=== PATIENT | male | born 1960 | race Caucasian/White ===

== ENCOUNTER 2016-11-19 12:31 | Emergency (ER) | payer BC ==
[2016-11-19] MEDS ORDERED: Sodium Chloride 0.9% 10 ML Syringe FLUSH PRN (12:48)
[2016-11-19] MEDS ORDERED: Aspirin 81 MG Tab.Chew PO ONE (12:48)
[2016-11-19] MEDS ORDERED: Sodium Chloride 0.9% 2.5 ML Syringe FLUSH PRN (12:48)
--- NOTE | 2016-11-19 12:53 | EDM.PDOC ---
ED HISTORY OF PRESENT ILLNESS - General Chief Complaint: Cardiovascular Problem Stated Complaint: UNK Time Seen by Provider: 11/19/16 12:39 - History of Present Illness INITIAL COMMENTS - FREE TEXT/NARRATIVE: HISTORY AND PHYSICAL: History of present illness: The patient is a 56-year-old male who presents after obtaining abnormal lab tests from the office of , where he had blood work done yesterday. According to the history he woke in the middle of night between and Monday with tingling in bilateral arms and severe discomfort in both of his arms diffusely. At that time he did not have chest pain or shortness of breath or abdominal pain and had no diaphoresis. He said he was not weak in his arms but they were both equally painful. He had a normal day earlier and this discomfort an episode lasted for about 4 hours constantly and then gradually "Petered off ". The patient states that his girlfriend works at Dr. Quevedo's office so they went in to get some testing done including EKG and blood work. The patient says he went home last night slept and woke today and was having a normal day when he was called saying that he had abnormal test results and he should come to the ER. I was also called by Dr. Quevedo recording these lab tests which included a troponin of 6.91. The patient stopped to get lunch prior to coming to the ER because he did not feel that there was urgency as he is having no symptoms of chest pain shortness of breath or upper extremity pain. The patient is a smoker who smokes one pack per week he denies alcohol and drug use. He has no family history or personal history of cardiac or pulmonary disease. The patient says he was seen here in our ER about 2 weeks ago and was "dehydrated and not feeling good". The patient has never done any cardiac testing and has no leg pain or swelling currently. The patient denies any symptomatology currently and denies any chest pain or shortness of breath with activities. Review of systems: As per history of present illness and below otherwise all systems reviewed and negative. Past medical history: As per history of present illness and as reviewed below otherwise noncontributory. Surgical history: As per history of present illness and as reviewed below otherwise noncontributory. Social history: No reported history of drug or alcohol abuse. Family history: As per history of present illness and as reviewed below otherwise noncontributory. Physical exam: General: Well-developed overweight male who is nontoxic and moving easily in ED. Vital signs are stable and have been reviewed by me. HEENT: Atraumatic, normocephalic, pupils reactive, negative for conjunctival pallor or scleral icterus, mucous membranes moist, throat clear, neck supple, nontender, trachea midline. Lungs: Clear to auscultation, breath sounds equal bilaterally, chest nontender.Normal air exchange no accessory muscle use wheezing or stridor Heart: S1S2, regular, negative for clicks, rubs, or JVD. Abdomen: Soft, nondistended, nontender. Negative for masses or hepatosplenomegaly. Negative for costovertebral tenderness. Pelvis: Stable nontender. Genitourinary: Deferred. Rectal: Deferred. Extremities: Atraumatic, negative for cords or calf pain. Neurovascular unremarkable.No pedal edema or leg asymmetry Neuro: Awake, alert, oriented. Cranial nerves II through XII unremarkable. Cerebellum unremarkable. Motor and sensory unremarkable throughout. Exam nonfocal. Diagnostics: EKG chest x-ray CBC CMP INR troponin Therapeutics: Aspirin Lovenox Patient's results of his test performed on Monday were sent to me which included a troponin-I of 6.91 CK-MB of 125.1 he also had CBC CMP PSA TSH triglycerides and cholesterol magnesium and EKG. According to the provider there he perform these tests last evening but did not get the results of today and called me as well as the patient to come for evaluation. 1335: Testing results were discussed with the patient, girlfriend and Dr. Valle the surgical nurse at [facility] in [place]. He will be transferred there as a direct admission to telemetry by Dr. Valle. Dr. Valle would like Lovenox to be given but no Plavix and as he is pain-free before baby aspirin only. He advises to treat the pain if it recurs in route and he feels ambulance transfer is appropriate. Critical care time excluding procedures:31min Impression: Non-STEMI FL Definitive disposition and diagnosis as appropriate pending reevaluation and review of above. - Related Data Allergies/ADRs: Allergies Allergy/AdvReac Type Severity Reaction Status Date / Time No Known Allergies Allergy Verified 11/19/16 12:37 Home Meds: Home Meds . [No Known Home Meds] 10/04/16 [History] Past Medical History - Past Health History Medical/Surgical History: Denies Medical/Surgical History HEENT History: Reports: None Cardiovascular History: Reports: High cholesterol, Hypertension Respiratory History: Reports: None Gastrointestinal History: Reports: None Genitourinary History: Reports: None Musculoskeletal History: Reports: None Neurological History: Reports: None Psychiatric History: Reports: None Endocrine/Metabolic History: Reports: None Hematologic History: Reports: None Immunologic History: Reports: None Oncologic (Cancer) History: Reports: None Dermatologic History: Reports: None - Infectious Disease History Infectious Disease History: Reports: None - Past Surgical History Head Surgeries/Procedures: Reports: None Social & Family History - Family History Family Medical History: Noncontributory - Tobacco Use Smoking Status *Q: Current Some Day Smoker Years of Tobacco use: 10 Packs/Tins Daily: 0.2 Second Hand Smoke Exposure: No - Caffeine Use Caffeine Use: Reports: Coffee - Recreational Drug Use Recreational Drug Use: No ED ROS GENERAL - Review of Systems Review Of Systems: ROS reveals no pertinent complaints other than HPI. ED EXAM, GENERAL - Physical Exam Exam: See Below (See dictation) Course - Vital Signs Last Recorded V/S: Last Vital Signs Temp 36.8 C 11/19/16 12:37 Pulse 78 11/19/16 13:00 Resp 16 11/19/16 13:00 BP 125/76 11/19/16 13:00 Pulse Ox 98 11/19/16 13:20 - Orders/Labs/Meds Orders: Active Orders 24 hr Category Date Time Status Cardiac Monitoring [RC] . DIRECTED Care 11/19/16 12:48 Active EKG Documentation Completion [RC] STAT Care 11/19/16 12:48 Active Oxygen Therapy, ED [RC] ASDIRECTED Care 11/19/16 12:48 Active Pulse Oximetry [RC] ASDIRECTED Care 11/19/16 12:48 Active Chest 1V Frontal [CR] Stat Exams 11/19/16 12:48 Taken Sodium Chloride 0.9% [Saline Flush] Med 11/19/16 12:48 Active 10 ml FLUSH ASDIRECTED PRN Sodium Chloride 0.9% [Saline Flush] Med 11/19/16 12:48 Active 2.5 ml FLUSH ASDIRECTED PRN Saline Lock Insert [OM.PC] Stat Oth 11/19/16 12:47 Ordered Medication Orders Sodium Chloride (Saline Flush) 10 ml FLUSH ASDIRECTED PRN PRN Reason: Keep Vein Open Last Admin: 11/19/16 12:54 Dose: 10 ml Sodium Chloride (Saline Flush) 2.5 ml FLUSH ASDIRECTED PRN PRN Reason: Keep Vein Open Last Admin: 11/19/16 12:54 Dose: 2.5 ml Labs: Laboratory Tests 11/19/16 11/19/16 11/19/16 Range/Units 12:26 12:40 12:40 WBC 11.61 H (4.0-11.0) K/uL RBC 4.98 (4.50-5.90) M/uL Hgb 15.8 (13.0-17.0) g/dL Hct 46.4 (38.0-50.0) % MCV 93.2 (80.0-98.0) fL MCH 31.7 (27.0-32.0) pg MCHC 34.1 (31.0-37.0) g/dL RDW Std Deviation 44.4 (28.0-62.0) fl RDW Coeff of Tino 13 (11.0-15.0) % Plt Count 159 (150-400) K/uL MPV 11.10 (7.40-12.00) fL Neut % (Auto) 72.3 (48.0-80.0) % Lymph % (Auto) 17.8 (16.0-40.0) % Josephine % (Auto) 8.8 (0.0-15.0) % Eos % (Auto) 0.9 (0.0-7.0) % Baso % (Auto) 0.2 (0.0-1.5) % Neut # (Auto) 8.4 H (1.4-5.7) K/uL Lymph # (Auto) 2.1 (0.6-2.4) K/uL Josephine # (Auto) 1.0 H (0.0-0.8) K/uL Eos # (Auto) 0.1 (0.0-0.7) K/uL Baso # (Auto) 0.0 (0.0-0.1) K/uL Nucleated RBC % 0.0 /100WBC Nucleated RBCs # 0 K/uL INR 0.99 (0.86-1.11) Sodium 140 (136-146) mmol/L Potassium 4.2 (3.5-5.1) mmol/L Chloride 109 (98-110) mmol/L Carbon Dioxide 19 L (21-31) mmol/L BUN 18 (6.0-23.0) mg/dL Creatinine 1.1 (0.6-1.5) mg/dL Est Cr Clr Drug Dosing 73.41 mL/min Estimated GFR (MDRD) > 60.0 ml/min Glucose 132 H (60-110) mg/dL Calcium 8.8 (8.8-10.8) mg/dL Total Bilirubin 0.7 (0.1-1.5) mg/dL AST 86 H (5-40) IU/L ALT 43 (8-54) IU/L Alkaline Phosphatase 81 (40-150) Troponin I (0.0-0.29) NG/ML Total Protein 7.3 (6.0-8.0) g/dL Albumin 4.1 (3.5-5.0) g/dL Globulin 3.2 (2.0-3.5) g/dL Albumin/Globulin Ratio 1.3 (1.3-2.8) 11/19/16 Range/Units 12:40 WBC (4.0-11.0) K/uL RBC (4.50-5.90) M/uL Hgb (13.0-17.0) g/dL Hct (38.0-50.0) % MCV (80.0-98.0) fL MCH (27.0-32.0) pg MCHC (31.0-37.0) g/dL RDW Std Deviation (28.0-62.0) fl RDW Coeff of Tino (11.0-15.0) % Plt Count (150-400) K/uL MPV (7.40-12.00) fL Neut % (Auto) (48.0-80.0) % Lymph % (Auto) (16.0-40.0) % Josephine % (Auto) (0.0-15.0) % Eos % (Auto) (0.0-7.0) % Baso % (Auto) (0.0-1.5) % Neut # (Auto) (1.4-5.7) K/uL Lymph # (Auto) (0.6-2.4) K/uL Josephine # (Auto) (0.0-0.8) K/uL Eos # (Auto) (0.0-0.7) K/uL Baso # (Auto) (0.0-0.1) K/uL Nucleated RBC % /100WBC Nucleated RBCs # K/uL INR (0.86-1.11) Sodium (136-146) mmol/L Potassium (3.5-5.1) mmol/L Chloride (98-110) mmol/L Carbon Dioxide (21-31) mmol/L BUN (6.0-23.0) mg/dL Creatinine (0.6-1.5) mg/dL Est Cr Clr Drug Dosing mL/min Estimated GFR (MDRD) ml/min Glucose (60-110) mg/dL Calcium (8.8-10.8) mg/dL Total Bilirubin (0.1-1.5) mg/dL AST (5-40) IU/L ALT (8-54) IU/L Alkaline Phosphatase (40-150) Troponin I 10.82 H* (0.0-0.29) NG/ML Total Protein (6.0-8.0) g/dL Albumin (3.5-5.0) g/dL Globulin (2.0-3.5) g/dL Albumin/Globulin Ratio (1.3-2.8) Meds: Medications Generic Name Dose Route Start Last Admin Trade Name Freq PRN Reason Stop Dose Admin Sodium Chloride 10 ml 11/19/16 12:48 11/19/16 12:54 Saline Flush FLUSH 10 ml ASDIRECTED PRN Administration Keep Vein Open Sodium Chloride 2.5 ml 11/19/16 12:48 11/19/16 12:54 Saline Flush FLUSH 2.5 ml ASDIRECTED PRN Administration Keep Vein Open Discontinued Medications Generic Name Dose Route Start Last Admin Trade Name Freq PRN Reason Stop Dose Admin Aspirin 324 mg 11/19/16 12:48 11/19/16 12:53 Aspirin PO 11/19/16 12:49 324 mg ONETIME ONE Administration Enoxaparin Sodium 100 mg 11/19/16 13:38 Lovenox SUBCUT 11/19/16 13:39 ONETIME ONE Departure - Departure Time of Disposition: 13:41 Disposition: DC/Tfer to Acute Hospital 02 Reason for Transfer *Q: Primary PCI Indicated Condition: good Clinical Impression: Non-STEMI (non-ST elevated myocardial infarction) - My Orders Last 24 Hours: My Active Orders 11/19/16 12:47 Saline Lock Insert [OM.PC] Stat 11/19/16 12:48 Cardiac Monitoring [RC] . DIRECTED EKG Documentation Completion [RC] STAT Oxygen Therapy, ED [RC] ASDIRECTED Pulse Oximetry [RC] ASDIRECTED Chest 1V Frontal [CR] Stat Sodium Chloride 0.9% [Saline Flush] 10 ml FLUSH ASDIRECTED PRN Sodium Chloride 0.9% [Saline Flush] 2.5 ml FLUSH ASDIRECTED PRN - Assessment/Plan Last 24 Hours: My Active Orders 11/19/16 12:47 Saline Lock Insert [OM.PC] Stat 11/19/16 12:48 Cardiac Monitoring [RC] . DIRECTED EKG Documentation Completion [RC] STAT Oxygen Therapy, ED [RC] ASDIRECTED Pulse Oximetry [RC] ASDIRECTED Chest 1V Frontal [CR] Stat Sodium Chloride 0.9% [Saline Flush] 10 ml FLUSH ASDIRECTED PRN Sodium Chloride 0.9% [Saline Flush] 2.5 ml FLUSH ASDIRECTED PRN
[2016-11-19 13:13] LABS: CHLORIDE,CL 109 mmol/L (98-110); SODIUM,NA 140 mmol/L (136-146)
[2016-11-19] MEDS ORDERED: Enoxaparin 100 MG/1 ML Syringe SUBCUT ONE (13:38)
[2016-11-19 13:53] VITALS: BP 141/76
--- NOTE | 2016-11-21 17:18 | CR ---
EXAM DATE: 11/19/16 PATIENT'S AGE: 56 Patient: DORIAN JOSEPH Facility: [place], [place] Site . Site : [id number] Study: XRay Chest [id number]/[id number] 1:10:21 PM Ordering Physician: Tia Contreras Final Report: CHEST 1 VIEW AP INDICATION: Short of breath. IMPRESSION: Normal heart size and vascular pattern. Lungs are clear. No pneumothorax or pleural abnormality. ECG Monitor leads projected over the patient. Stable left-sided upper posterior rib fractures. No change 10/04/2016. Dictated by Leobardo Garber MD @ Nov 19 2016 1:32PM (Electronic Signature) MReport Signed by Proxy and Original Signed Document filed in the Medical Record. MTDD
== END 2016-11-19 14:22 ==
LOC: MW.ED 12:31
DX: I21.4 Non-ST elevation (NSTEMI) myocardial infarction (principal); I10 Essential (primary) hypertension; E78.00 Pure hypercholesterolemia, unspecified; F17.210 Nicotine dependence, cigarettes, uncomplicated
CPT/HCPCS: 36415; 71010; 80053; 84484; 85025; 85610; 93005; 96372; 99285; A9270; J1650; 99291

== ENCOUNTER 2021-11-17 11:30 | Inpatient (IN) | payer BC, MEDICAID ==
[2021-11-17] MEDS ORDERED: Sodium Chloride 0.9% 10 ML Syringe FLUSH PRN ×2 (11:34→14:52)
[2021-11-17] MEDS ORDERED: Sodium Chloride 0.9% 2.5 ML Syringe FLUSH PRN ×2 (11:34→14:52)
[2021-11-17] MEDS ORDERED: Glucagon,Human Recombinant 1 MG Vial IM PRN ×2 (12:08→22:47)
[2021-11-17] MEDS ORDERED: 50% Dextrose in Water 50 ML Syringe IVPUSH PRN ×3 (12:08→22:47)
[2021-11-17] MEDS ORDERED: Insulin Regular, Human 100 Units/ML 10 ML Vial SUBCUT ONE (12:08)
[2021-11-17 12:39] LABS: BLOOD UREA NITROGEN,BUN 22 mg/dL (7.0-18.0); CARBON DIOXIDE,CO2 20.8 mmol/L (21.0-32.0); CHLORIDE,CL 90 mmol/L (98-107)
[2021-11-17] MEDS ORDERED: Insulin Regular in 0.9 % NACL 100 ML IV SCH ×2 (12:43→15:00)
[2021-11-17 12:47] LABS: POTASSIUM,K 4.8 mmol/L (3.5-5.1)
[2021-11-17 12:49] LABS: GLUCOSE RANDOM 587 mg/dL (74-106); SODIUM,NA 124 mmol/L (136-148)
[2021-11-17 12:51] LABS: CORONAVIRUS COVID-19 NAA POSITIVE (NEGATIVE); INFLUENZA A NAA NEGATIVE (NEGATIVE); INFLUENZA B NAA NEGATIVE (NEGATIVE)
[2021-11-17] MEDS ORDERED: Levofloxacin/Dextrose 5%-Water 750 MG in Premix Bag 1 BAG IV ONE (12:54)
[2021-11-17] MEDS ORDERED: Iopamidol 755 MG/ML 500 ML Multipack Bottle IVPUSH STA (13:12)
[2021-11-17] MEDS ORDERED: Sodium Chloride 0.9% 1,000 ML IV ONE (13:37)
[2021-11-17] MEDS ORDERED: Glucagon,Human Recombinant 1 MG Vial IVPUSH PRN (14:49)
[2021-11-17] MEDS ORDERED: Acetaminophen 325 MG Tab PO PRN (14:52)
[2021-11-17] MEDS ORDERED: Ondansetron 4 MG/2 ML SDV IVPUSH PRN (14:52)
[2021-11-17] MEDS ORDERED: Pantoprazole 80 MG in Sodium Chloride 0.9% 10 ML IVPUSH ONE (15:00)
[2021-11-17] MEDS: Sodium Chloride 0.9% 1,000 ML IV SCH ×2 (15:09→16:49)
[2021-11-17] MEDS: Heparin Sodium 5,000 Units/ML Vial SUBCUT SCH ×2 (15:10→23:19)
[2021-11-17] MEDS ORDERED: Albuterol/Ipratropium 3.0-0.5 MG/3 ML Neb Soln NEB PRN (15:25)
[2021-11-17] MEDS ORDERED: Benzonatate 100 MG Cap PO PRN (15:30)
[2021-11-17] MEDS: Fluticasone NASAL Spray 16 GM Bottle NASBOTH SCH (15:49)
[2021-11-17 17:47] LABS: BLOOD UREA NITROGEN,BUN 17 mg/dL (7.0-18.0); CARBON DIOXIDE,CO2 24.7 mmol/L (21.0-32.0); CHLORIDE,CL 97 mmol/L (98-107); GLUCOSE RANDOM 274 mg/dL (74-106); POTASSIUM,K 3.9 mmol/L (3.5-5.1); SODIUM,NA 133 mmol/L (136-148)
[2021-11-17] MEDS: Docusate Sodium 100 MG Cap PO SCH (20:21)
[2021-11-17 21:16] LABS: BLOOD UREA NITROGEN,BUN 16 mg/dL (7.0-18.0); CARBON DIOXIDE,CO2 24.4 mmol/L (21.0-32.0); CHLORIDE,CL 101 mmol/L (98-107); GLUCOSE RANDOM 287 mg/dL (74-106); POTASSIUM,K 3.7 mmol/L (3.5-5.1); SODIUM,NA 134 mmol/L (136-148)
[2021-11-17] MEDS ORDERED: Insulin Aspart 100 Units/ML 3 ML Pen SUBCUT ONE (22:52)
[2021-11-18 06:12] LABS: BLOOD UREA NITROGEN,BUN 14 mg/dL (7.0-18.0); CARBON DIOXIDE,CO2 22.7 mmol/L (21.0-32.0); CHLORIDE,CL 101 mmol/L (98-107); GLUCOSE RANDOM 247 mg/dL (74-106); POTASSIUM,K 4.2 mmol/L (3.5-5.1); SODIUM,NA 133 mmol/L (136-148)
[2021-11-18] MEDS: Pantoprazole 40 MG Tab.CR PO SCH (06:45)
[2021-11-18] MEDS: Heparin Sodium 5,000 Units/ML Vial SUBCUT SCH ×3 (06:45→22:00)
[2021-11-18] MEDS: Insulin Aspart 100 Units/ML 3 ML Pen SUBCUT SCH ×5 (06:50→21:59)
[2021-11-18] MEDS: Fluticasone NASAL Spray 16 GM Bottle NASBOTH SCH (08:09)
[2021-11-18] MEDS: Docusate Sodium 100 MG Cap PO SCH ×2 (08:09→21:57)
[2021-11-18] MEDS ORDERED: Insulin Glargine,Human Rec. Analog 100 Units/ML 3 ML Pen SUBCUT SCH ×2 (09:00→21:00)
[2021-11-18] MEDS: Levofloxacin 750 MG Tab PO SCH (12:03)
[2021-11-18] MEDS ORDERED: Levofloxacin/Dextrose 5%-Water 750 MG in Premix Bag 1 BAG IV SCH (13:00)
[2021-11-19] MEDS: Heparin Sodium 5,000 Units/ML Vial SUBCUT SCH ×2 (06:17→14:08)
[2021-11-19 07:14] LABS: BLOOD UREA NITROGEN,BUN 12 mg/dL (7.0-18.0); CARBON DIOXIDE,CO2 23.9 mmol/L (21.0-32.0); CHLORIDE,CL 103 mmol/L (98-107); GLUCOSE RANDOM 221 mg/dL (74-106); POTASSIUM,K 4.1 mmol/L (3.5-5.1); SODIUM,NA 137 mmol/L (136-148)
[2021-11-19] MEDS: Fluticasone NASAL Spray 16 GM Bottle NASBOTH SCH (08:22)
[2021-11-19] MEDS: Docusate Sodium 100 MG Cap PO SCH (08:22)
[2021-11-19] MEDS: Pantoprazole 40 MG Tab.CR PO SCH (08:22)
[2021-11-19] MEDS: Insulin Aspart 100 Units/ML 3 ML Pen SUBCUT SCH ×4 (08:25→12:08)
[2021-11-19] MEDS ORDERED: Insulin Glargine,Human Rec. Analog 100 Units/ML 3 ML Pen SUBCUT SCH (09:00)
[2021-11-19] MEDS: Levofloxacin 750 MG Tab PO SCH (14:04)
[2021-11-19 16:37] VITALS: BP 122/83; PULSE 89
== END 2021-11-19 15:45 | disposition home or self-care (01) | DRG 637 ==
LOC: MW.ED 11:30 → MW.ICU 14:01 → MW.MS 11-18 15:00
PROVIDERS: ADMIT Internal Medicine; ATTEND Internal Medicine
DX: E11.65 Type 2 diabetes mellitus with hyperglycemia (principal); J18.9 Pneumonia, unspecified organism; U07.1 COVID-19; N17.9 Acute kidney failure, unspecified; E78.5 Hyperlipidemia, unspecified; I25.10 Atherosclerotic heart disease of native coronary artery without angina pectoris; F17.210 Nicotine dependence, cigarettes, uncomplicated; E86.0 Dehydration; E66.9 Obesity, unspecified; E78.00 Pure hypercholesterolemia, unspecified; I25.2 Old myocardial infarction; Z79.82 Long term (current) use of aspirin; Z79.4 Long term (current) use of insulin; Z79.899 Other long term (current) drug therapy; Z68.32 Body mass index [BMI] 32.0-32.9, adult
CPT/HCPCS: 0240U; 36415; 71045; 71045-26; 71275; 71275-26; 80048; 80053; 81003; 82009; 82803; 82947; 83036; 83605; 83735; 84100; 84484; 85025; 85379; 87040; 93005; 96374; 99285-25; A9270-GY; C9113; J1644; J1815; J1815-GY; J1956; J3490; J7030; Q9967

== ENCOUNTER 2021-11-20 01:27 | Observation (INO) | payer BC, MEDICAID ==
[2021-11-20] MEDS ORDERED: Sodium Chloride 0.9% 10 ML Syringe FLUSH PRN (02:11)
[2021-11-20] MEDS ORDERED: Sodium Chloride 0.9% 1,000 ML IV ONE (02:11)
[2021-11-20] MEDS ORDERED: Sodium Chloride 0.9% 2.5 ML Syringe FLUSH PRN (02:11)
[2021-11-20 03:04] LABS: BLOOD UREA NITROGEN,BUN 14 mg/dL (7.0-18.0); CARBON DIOXIDE,CO2 18.9 mmol/L (21.0-32.0); CHLORIDE,CL 101 mmol/L (98-107); GLUCOSE RANDOM 337 mg/dL (74-106); LIPASE 144 U/L (73-393); POTASSIUM,K 4.1 mmol/L (3.5-5.1); SODIUM,NA 134 mmol/L (136-148)
[2021-11-20] MEDS ORDERED: Insulin Regular, Human 100 Units/ML 10 ML Vial SUBCUT ONE (03:56)
[2021-11-20] MEDS ORDERED: Piperacillin/Tazobactam 3.375 GM in Sodium Chloride 0.9% 50 ML IV ONE (03:59)
[2021-11-20] MEDS ORDERED: VANCOmycin 1.5 GM/300 ML 1.5 GM in Premix Bag 1 BAG IV SCH (04:30)
[2021-11-20] MEDS ORDERED: Glucagon,Human Recombinant 1 MG Vial IM PRN (07:58)
[2021-11-20] MEDS ORDERED: 50% Dextrose in Water 50 ML Syringe IVPUSH PRN (07:58)
[2021-11-20] MEDS ORDERED: Lactated Ringers 1,000 ML IV SCH (08:00)
[2021-11-20] MEDS ORDERED: Ondansetron 4 MG/2 ML SDV IVPUSH PRN (08:00)
[2021-11-20 08:28] LABS: BLOOD UREA NITROGEN,BUN 10 mg/dL (7.0-18.0); CARBON DIOXIDE,CO2 22.9 mmol/L (21.0-32.0); CHLORIDE,CL 105 mmol/L (98-107); GLUCOSE RANDOM 223 mg/dL (74-106); POTASSIUM,K 3.9 mmol/L (3.5-5.1); SODIUM,NA 138 mmol/L (136-148)
[2021-11-20] MEDS: Pantoprazole 40 MG in Sodium Chloride 0.9% 10 ML IVPUSH SCH (09:25)
[2021-11-20] MEDS: Piperacillin/Tazobactam 3.375 GM in Sodium Chloride 0.9% 50 ML IV SCH ×3 (09:31→23:02)
[2021-11-20] MEDS: VANCOmycin 1.5 GM/300 ML 1.5 GM in Premix Bag 1 BAG IV SCH ×2 (10:14→21:02)
[2021-11-20] MEDS: Lactated Ringers 1,000 ML IV SCH ×2 (12:40→18:21)
[2021-11-20] MEDS: Insulin Aspart 100 Units/ML 3 ML Pen SUBCUT SCH ×2 (14:42→18:21)
[2021-11-20] MEDS ORDERED: Insulin Glargine,Human Rec. Analog 100 Units/ML 3 ML Pen SUBCUT SCH (21:00)
[2021-11-21] MEDS: Lactated Ringers 1,000 ML IV SCH ×3 (02:06→10:09)
[2021-11-21 06:28] LABS: BLOOD UREA NITROGEN,BUN 5 mg/dL (7.0-18.0); CARBON DIOXIDE,CO2 21.6 mmol/L (21.0-32.0); CHLORIDE,CL 109 mmol/L (98-107); GLUCOSE RANDOM 122 mg/dL (74-106); POTASSIUM,K 3.5 mmol/L (3.5-5.1); SODIUM,NA 140 mmol/L (136-148)
[2021-11-21] MEDS: Insulin Aspart 100 Units/ML 3 ML Pen SUBCUT SCH ×2 (06:41→12:30)
[2021-11-21] MEDS: Piperacillin/Tazobactam 3.375 GM in Sodium Chloride 0.9% 50 ML IV SCH (07:41)
[2021-11-21] MEDS: VANCOmycin 1.5 GM/300 ML 1.5 GM in Premix Bag 1 BAG IV SCH (08:32)
[2021-11-21] MEDS: Pantoprazole 40 MG in Sodium Chloride 0.9% 10 ML IVPUSH SCH (08:32)
[2021-11-21 12:48] VITALS: BP 138/88; PULSE 79
== END 2021-11-21 15:00 | disposition home or self-care (01) ==
LOC: MW.ED 01:27 → MW.MS 04:04
PROVIDERS: ADMIT Student in an Organized Health Care Education/Training Program; ATTEND Student in an Organized Health Care Education/Training Program
DX: J18.9 Pneumonia, unspecified organism (principal); I25.10 Atherosclerotic heart disease of native coronary artery without angina pectoris; I10 Essential (primary) hypertension; U07.1 COVID-19; E11.65 Type 2 diabetes mellitus with hyperglycemia; E87.8 Other disorders of electrolyte and fluid balance, not elsewhere classified; E78.00 Pure hypercholesterolemia, unspecified; E11.10 Type 2 diabetes mellitus with ketoacidosis without coma; I25.2 Old myocardial infarction; E66.9 Obesity, unspecified; Z68.30 Body mass index [BMI] 30.0-30.9, adult; Z79.4 Long term (current) use of insulin; Z79.899 Other long term (current) drug therapy; Z79.82 Long term (current) use of aspirin
CPT/HCPCS: 36415; 70450; 71045; 80048; 80053; 80305; 80307; 81003; 82009; 82803; 82947; 83690; 84484; 85025; 85610; 87040; 93005; 96374; 99285; C9113; J1815; J2543; J3370; J7030; J7120; J3490

== ENCOUNTER 2021-11-22 12:28 | Emergency (ER) | payer MEDICAID ==
[2021-11-22 13:46] VITALS: BP 122/77; PULSE 83
== END 2021-11-22 14:27 ==
LOC: MW.ED 12:28
DX: Z02.89 Encounter for other administrative examinations (principal); I10 Essential (primary) hypertension; I25.2 Old myocardial infarction; E11.9 Type 2 diabetes mellitus without complications; E66.9 Obesity, unspecified; Z68.31 Body mass index [BMI] 31.0-31.9, adult; Z79.4 Long term (current) use of insulin
CPT/HCPCS: 99283

== ENCOUNTER 2022-06-06 05:15 | Emergency (ER) | payer MEDICAID | END 2022-06-06 06:05 | LOC: MW.ED 05:15 | DX: Z02.89 Encounter for other administrative examinations (principal); Z76.0 Encounter for issue of repeat prescription | CPT/HCPCS: 99282 ==

== ENCOUNTER 2023-11-07 22:07 | Emergency (ER) | payer SELFPAY ==
[2023-11-07 22:44] LABS: BASE EXCESS VENOUS -0.1 (-2.0-3.0); PH,VENOUS 7.44 (7.31-7.41)
[2023-11-07 22:45] LABS: BASOPHILS ABSOLUTE AUTO 0.05 K/uL (0.00-0.20); BASOPHILS PERCENT AUTO 0.5 % (0.0-1.0); EOSINOPHILS ABSOLUTE AUTO 0.12 K/uL (0.00-0.45); EOSINOPHILS PERCENT AUTO 1.1 % (0.0-6.0); HEMATOCRIT 52.8 % (42.0-52.0); HEMOGLOBIN 18.8 g/dL (14.0-18.0); IMMATURE GRAN ABSOLUTE AUTO 0.03 K/uL (0.00-0.05); IMMATURE GRAN PERCENT AUTO 0.3 % (0.0-0.4); LYMPHOCYTES ABSOLUTE AUTO 2.63 K/uL (1.00-4.80); LYMPHOCYTES PERCENT AUTO 25.1 % (24.0-44.0); MEAN CORPUSCULAR HEMOGLOBIN 33.4 pg (28.0-32.0); MEAN CORPUSCULAR HGB CONC 35.6 g/dL (32.0-36.0); MEAN CORPUSCULAR VOLUME 93.8 fL (83.0-99.0); MEAN PLATELET VOLUME 10.3 fL (9.4-12.4); MONOCYTES ABSOLUTE AUTO 0.77 K/uL (0.00-0.80); MONOCYTES PERCENT AUTO 7.3 % (0.0-8.0); NEUTROPHILS ABSOLUTE AUTO 6.88 K/uL (1.80-7.70); NEUTROPHILS PERCENT AUTO 65.7 % (41.0-71.0); PLATELET COUNT,PLT 136 K/uL (150-400); RED BLOOD CELL COUNT 5.63 M/uL (4.52-5.90); WHITE BLOOD CELL COUNT,WBC 10.48 K/uL (3.9-11.3)
[2023-11-07] MEDS: Sodium Chloride 0.9% 1,000 ML IV ONE (22:52)
[2023-11-07 23:12] LABS: ALBUMIN 3.6 g/dL (3.4-5.0); BILIRUBIN TOTAL 1.7 mg/dL (0.2-1.0); CALCIUM 9.2 mg/dL (8.5-10.1); CARBON DIOXIDE,CO2 23.4 mmol/L (21.0-32.0); EST CRCL DRUG DOSING (CG) 76.17 mL/min; POTASSIUM,K 4.3 mmol/L (3.5-5.1); PROTEIN TOTAL,TP 7.2 g/dL (6.4-8.2)
[2023-11-07 23:51] VITALS: BP 136/94; PULSE 94
== END 2023-11-07 23:51 | disposition home or self-care (01) ==
LOC: MW.ED 22:07
DX: I10 Essential (primary) hypertension (principal); E11.65 Type 2 diabetes mellitus with hyperglycemia; R42 Dizziness and giddiness; I25.10 Atherosclerotic heart disease of native coronary artery without angina pectoris; I25.2 Old myocardial infarction; Z79.899 Other long term (current) drug therapy; Z79.82 Long term (current) use of aspirin
CPT/HCPCS: 36415; 70450; 80053; 82009; 82803; 83036; 83690; 84484; 85025; 93005; 96360; 99284; J7030; 93010; 99282

== ENCOUNTER 2023-11-28 17:14 | Emergency (ER) | payer SELFPAY ==
[2023-11-28] MEDS: Ibuprofen 600 MG Tab PO ONE (17:34)
[2023-11-28 17:38] VITALS: BP 165/92; PULSE 89
== END 2023-11-28 17:38 | disposition home or self-care (01) ==
LOC: MW.ED 17:14
DX: R51.9 Headache, unspecified; I25.10 Atherosclerotic heart disease of native coronary artery without angina pectoris; E78.00 Pure hypercholesterolemia, unspecified; I10 Essential (primary) hypertension; I25.2 Old myocardial infarction; E11.9 Type 2 diabetes mellitus without complications; E66.9 Obesity, unspecified; F17.210 Nicotine dependence, cigarettes, uncomplicated; Z79.82 Long term (current) use of aspirin; Z79.899 Other long term (current) drug therapy; Z79.4 Long term (current) use of insulin; Z86.19 Personal history of other infectious and parasitic diseases; Z68.23 Body mass index [BMI] 23.0-23.9, adult
CPT/HCPCS: 99283; A9270

== ENCOUNTER 2023-12-25 12:21 | Emergency (ER) | payer SELFPAY ==
[2023-12-25] MEDS: Sodium Chloride 0.9% 1,000 ML IV ONE ×2 (12:33→13:54)
[2023-12-25 12:41] LABS: BASOPHILS ABSOLUTE AUTO 0.03 K/uL (0.00-0.20); BASOPHILS PERCENT AUTO 0.3 % (0.0-1.0); EOSINOPHILS ABSOLUTE AUTO 0.02 K/uL (0.00-0.45); EOSINOPHILS PERCENT AUTO 0.2 % (0.0-6.0); HEMATOCRIT 49.3 % (42.0-52.0); HEMOGLOBIN 17.9 g/dL (14.0-18.0); IMMATURE GRAN ABSOLUTE AUTO 0.04 K/uL (0.00-0.05); IMMATURE GRAN PERCENT AUTO 0.4 % (0.0-0.4); LYMPHOCYTES ABSOLUTE AUTO 1.54 K/uL (1.00-4.80); LYMPHOCYTES PERCENT AUTO 16.7 % (24.0-44.0); MEAN CORPUSCULAR HEMOGLOBIN 33.7 pg (28.0-32.0); MEAN CORPUSCULAR HGB CONC 36.3 g/dL (32.0-36.0); MEAN CORPUSCULAR VOLUME 92.8 fL (83.0-99.0); MEAN PLATELET VOLUME 10.1 fL (9.4-12.4); MONOCYTES PERCENT AUTO 7.6 % (0.0-8.0); NEUTROPHILS ABSOLUTE AUTO 6.91 K/uL (1.80-7.70); NEUTROPHILS PERCENT AUTO 74.8 % (41.0-71.0); PLATELET COUNT,PLT 142 K/uL (150-400); RED BLOOD CELL COUNT 5.31 M/uL (4.52-5.90); WHITE BLOOD CELL COUNT,WBC 9.24 K/uL (3.9-11.3)
[2023-12-25 13:06] LABS: A/G RATIO 1.1 (0.9-1.6); ALBUMIN 3.6 g/dL (3.4-5.0); BILIRUBIN TOTAL 1.1 mg/dL (0.2-1.0); CALCIUM 9.3 mg/dL (8.5-10.1); CARBON DIOXIDE,CO2 22.8 mmol/L (21.0-32.0); CREATININE 1.2 mg/dL (0.8-1.3); EST CRCL DRUG DOSING (CG) 59.67 mL/min; POTASSIUM,K 4.4 mmol/L (3.5-5.1)
[2023-12-25] MEDS ORDERED: Glucagon,Human Recombinant 1 MG Vial IM PRN (13:33)
[2023-12-25] MEDS ORDERED: 50% Dextrose in Water 50 ML Syringe IVPUSH PRN (13:33)
[2023-12-25] MEDS: Insulin Regular, Human 100 Units/ML 10 ML Vial IVPUSH ONE (13:54)
[2023-12-25] MEDS: Ondansetron 4 MG/2 ML SDV IVPUSH ONE (14:54)
[2023-12-25 15:10] VITALS: BP 154/101; PULSE 75
== END 2023-12-25 15:08 ==
LOC: MW.ED 12:21
DX: E11.65 Type 2 diabetes mellitus with hyperglycemia (principal); I25.10 Atherosclerotic heart disease of native coronary artery without angina pectoris; E78.00 Pure hypercholesterolemia, unspecified; I10 Essential (primary) hypertension; I25.2 Old myocardial infarction; E66.9 Obesity, unspecified; Z79.82 Long term (current) use of aspirin; Z79.4 Long term (current) use of insulin; Z79.899 Other long term (current) drug therapy; Z75.8 Other problems related to medical facilities and other health care
CPT/HCPCS: 36415; 80053; 82947; 85025; 96360; 96361; 99285; J1815; J7030; 99284